=== PATIENT | male | born 1995 | race Caucasian/White ===

== ENCOUNTER 2021-04-30 17:31 | Emergency (ER) | payer OTHER ==
[~2021-04-30 17:31] MED LIST: CLARITIN10 MG PO; KEFLEX500 MG PO; PREDNISONE 20MG20 MG PO
[2021-04-30 18:17] LABS: BASOPHIL 0.7 % (0-2); BILIRUBIN NEGATIVE (NEGATIVE); BLOOD NEGATIVE Ery/uL (NEGATIVE); CLARITY CLEAR (CLEAR); COLOR YELLOW (YELLOW); EOSINOPHIL 2.6 % (0-5); GLUCOSE (U) NORMAL (NORMAL); HCT 40.7 % (42.0-52.0); HGB 14.4 g/dl (13.2-18.0); LEUKOCYTES NEGATIVE Leu/uL (NEGATIVE); LYMPHOCYTE 20.5 % (15-48); MCH 32.4 pg (25.0-31.0); MCHC 35.4 g/dL (32.0-36.0); MCV 91.5 fL (78.0-100.0); MONOCYTE 5.8 % (0-12); MPV 8.6 fL (6.0-9.5); NEUTROPHIL 70.2 % (41-80); NITRITE NEGATIVE (NEGATIVE); NRBC 0; PLT 232 K/uL (150-400); PROTEIN NEGATIVE (NEGATIVE); RBC 4.45 M/uL (4.70-6.00); RDW 12.1 % (11.5-14.0); UROBILINOGEN 0.2 mg/dL (0.2-1.0)
[2021-04-30 18:21] LABS: ECSTASY (MDMA) NEGATIVE (NEGATIVE); MARIJUANA (THC) POSITIVE (NEGATIVE); METHADONE NEGATIVE (NEGATIVE); OPIATES NEGATIVE (NEGATIVE)
[2021-04-30 18:22] LABS: AMPHETAMINES NEGATIVE (NEGATIVE); BARBITURATES NEGATIVE (NEGATIVE); OXYCODONE NEGATIVE (NEGATIVE)
[2021-04-30 18:43] LABS: BILIRUBIN - TOTAL 0.6 mg/dL (0.2-1.0); BUN/CREAT RATIO (CALC) 16.7 RATIO; CREATININE 0.84 mg/dL (0.67-1.17); GLOBULIN (CALCULATION) 3.3 g/dL; POTASSIUM 3.3 mmol/L (3.5-5.1); TOTAL PROTEIN 7.3 g/dL (6.4-8.2)
== END 2021-04-30 19:18 | disposition home or self-care (01) ==
LOC: FER 17:31
PROVIDERS: Nurse Practitioner Family
DX: R07.89 Other chest pain (principal); F12.90 Cannabis use, unspecified, uncomplicated; Z87.891 Personal history of nicotine dependence
CPT/HCPCS: 36415; 71045; 80053; 80305; 81003; 84484; 85025; 85379; 93005

== ENCOUNTER 2021-12-03 14:29 | Emergency (ER) | payer OTHER ==
[2021-12-03] MEDS ORDERED: NORCO 5-325 TA1 EACH PO (16:08)
[2021-12-03] MEDS ORDERED: CEPHALEXIN500 M1 PO (16:08)
[2021-12-03] MEDS ORDERED: IBUPROFEN800 MG PO (16:08)
== END 2021-12-03 16:38 | disposition home or self-care (01) ==
LOC: FER 14:29
DX: S62.633A Displaced fracture of distal phalanx of left middle finger, initial encounter for closed fracture (principal); S61.313A Laceration without foreign body of left middle finger with damage to nail, initial encounter; Z23 Encounter for immunization; W27.0XXA Contact with workbench tool, initial encounter; Y92.009 Unspecified place in unspecified non-institutional (private) residence as the place of occurrence of the external cause
CPT/HCPCS: 73130; 90471; 90715